=== PATIENT | female | born 1960 | race Caucasian/White ===

== ENCOUNTER → 2018-02-17 | Outpatient (CLI) | payer OTHER ==
--- NOTE | 2018-02-17 12:30 | KCIC ---
EXAM: Dual energy x-ray absorptiometry (DEXA). HISTORY: Osteopenia. Hyperthyroidism. COMPARISON: 09/28/2015. TECHNIQUE: Dual energy x-ray absorptiometry of the lumbar spine and left was performed. Calculation of bone mineral density based on standard deviations above or below the expected young adult normal value (T-score) was completed. FINDINGS: The average bone mineral density in the 1st through 4th lumbar vertebrae is 0.889 g/cmxcm, corresponding with a T-score of -1.4. There has been a 5.4% decrease in density of the lumbar spine compared to the prior study. The average total bone mineral density in the left hip is 0.834 g/cmxcm, corresponding with a T-score of -0.9.. In a 4.4% increase in density of the left hip compared to the prior study. IMPRESSION: 1. Osteopenia measured at the lumbar spine. 2. Normal bone mineral density measured at the left hip. Note: Definitions established by the [employer]: 1. Normal: T-score is -1.0 or above. 2. Osteopenia: T-score is between -1.0 and -2.5 . 3. Osteoporosis: T-score is -2.5 or below. Electronically signed by: Tiffany Asif MD (02/17/2018 12:26 PM) [place] [id number]
== END | disposition home or self-care (01) ==
LOC: KCIC DEXA 11:35
PROVIDERS: ATTEND Family Medicine
DX: Z13.820 Encounter for screening for osteoporosis (principal); M85.88 Other specified disorders of bone density and structure, other site; E05.90 Thyrotoxicosis, unspecified without thyrotoxic crisis or storm
CPT/HCPCS: 77080